=== PATIENT | male | born 1975 | race Caucasian/White ===

== ENCOUNTER 2017-12-29 20:35 | Emergency (ER) | payer BC ==
[2017-12-29] MEDS ORDERED: SULFAMETHOXAZOLE/TRIMETHOPRIM 1 EACH TABLET PO ONE (20:44)
--- NOTE | 2017-12-29 20:49 | ED Physician Documentation ---
General Adult - HISTORIAN Historian: patient - HPI Stated Complaint: spider bites Chief Complaint: General Adult Additional Information: Spider bites right axilla and leg for several days. These areas have been draining. No treatment attempted. - ROS CONST: no problems - PAST HX Past History: none Allergies/Adverse Reactions: Allergies Allergy/AdvReac Type Severity Reaction Status Date / Time No Known Allergies Allergy Verified 08/15/15 15:20 Home Medications: Ambulatory Orders Medication Instructions Recorded Gentamicin Sulfate [Gentak 0.3% 2 drop OP Q6 #15 ml 08/15/15 Opth [facility]] - SOCIAL HX Smoking History: cigarettes - FAMILY HX Family History: Yes (GF with DM, lung cancer, prostate cancer) - VITAL SIGNS Vital Signs: Vital Signs Temp Pulse Resp BP Pulse Ox 133/88 08/15/15 15:59 - REVIEWED ASSESSMENTS Nursing Assessment Reviewed: Yes Vitals Reviewed: Yes ED Results Lab/Radiology - Orders Orders: ED Orders Category Date Time Status Chem Sticks Med 12/30/17 20:44 Once 1 each MC CHEMQ ONE Sulfamethoxazole/Trimethoprim [Bactrim Ds] Med 12/29/17 20:44 Once 1 each PO NOW ONE General Adult Physical Exam - PHYSICAL EXAM GENERAL APPEARANCE: no distress EENT: eye inspection normal NECK: normal inspection, supple RESPIRATORY: no resp distress BACK: normal inspection SKIN: warm/dry, normal color, other (Right axilla with 5x8 cm area of erythema, induration and central draining area. Right post lower leg, distal 1/3with 5x6 cm area erythema, no induration, central scab>1 cm, no fluctuance) EXTREMITIES: normal range of motion (gait and stance), no evidence of injury NEURO: CN's nml as tested, motor nml, sensation nml, cognition normal Discharge Clincal Impression: Cutaneous abscess Qualifiers: Site of cutaneous abscess: extremity Site of cutaneous abscess of extremity: axilla Laterality: right Qualified Code(s): L02.411 - Cutaneous abscess of right axilla Cutaneous abscess of extremity Qualifiers: Site of cutaneous abscess of extremity: lower extremity Laterality: right Qualified Code(s): L02.415 - Cutaneous abscess of right lower limb Referrals: Primary Doctor,No [Primary Care Provider] - 2 Days Additional Instructions: Use thorough hand washing. Don't share clothes or linens. Warm compresses to the red areas several times a day. Take all the antibiotics as prescribed until they are completely gone. Condition: Good Disposition: 01 HOME, SELF-CARE Decision to Admit: NO Decision Time: 20:52
[2017-12-29 21:18] VITALS: BP 142/91
== END 2017-12-29 21:08 | disposition home or self-care (01) ==
LOC: ED 20:35
DX: L02.411 Cutaneous abscess of right axilla (principal); L02.415 Cutaneous abscess of right lower limb
CPT/HCPCS: A9270

== ENCOUNTER 2018-01-01 08:17 | Emergency (ER) | payer BC ==
--- NOTE | 2018-01-01 08:27 | ED Physician Documentation ---
General Adult - HISTORIAN Historian: patient - HPI Stated Complaint: area of skin concern abscess and possible med reaction Chief Complaint: Skin Rash Onset: days ago (3) Timing: still present, worse Severity: mild Further Comments: yes (He states he was treated with bactrim for a cellulitis abscess on the arm and notes over the last 24 hours he has had increasing red raised itching arm and back . He states he has been taking antibiotic as ordered) Last known Well Code/Unknown Code: Unknown - ROS CONST: sweating MS/SKIN/LYMPH: rash NEURO/PSYCH: denies: headache, fainting, dizziness - PAST HX Past History: none Other History: none Surgeries/Procedures: none Immunizations: UTD Allergies/Adverse Reactions: Allergies Allergy/AdvReac Type Severity Reaction Status Date / Time sulfamethoxazole Allergy Intermediate Rash Verified 01/01/18 08:37 [From Bactrim] trimethoprim [From Bactrim] Allergy Intermediate Rash Verified 01/01/18 08:37 Home Medications: Ambulatory Orders Medication Instructions Recorded NK 01/01/18 - SOCIAL HX Smoking History: cigarettes Alcohol Use: none Drug Use: none - FAMILY HX Family History: No - VITAL SIGNS Vital Signs: Vital Signs Temp Pulse Resp BP Pulse Ox 142/91 12/29/17 21:47 - REVIEWED ASSESSMENTS Nursing Assessment Reviewed: Yes Vitals Reviewed: Yes General Adult Physical Exam - PHYSICAL EXAM GENERAL APPEARANCE: no distress EENT: eye inspection normal NECK: normal inspection RESPIRATORY: no resp distress, chest non-tender, breath sounds normal CVS: reg rate & rhythm, heart sounds normal, equal pulses, no murmur ABDOMEN: soft BACK: normal inspection SKIN: warm/dry, other (red area on right axilla with extending redness over right upper arm. Crusting drainge noted. No purulent material noted under the skin . secondary red raised areas over lower back and both forearms that itch ) EXTREMITIES: non-tender, no edema NEURO: oriented X3 Discharge Clincal Impression: Allergy to antibacterial drug Cutaneous abscess of extremity Qualifiers: Site of cutaneous abscess of extremity: upper extremity Laterality: right Qualified Code(s): L02.413 - Cutaneous abscess of right upper limb Referrals: Primary Doctor,No [Primary Care Provider] - 2 Days Comments: 1. STOP bactrim 2. Benadryl OTC as directed for rash 3. Medrol Dose pack - as directed start 4. Clindamycin 300 mg take 1 by mouth four times per day x 10 days 5. rash from reaction will increase in heat 6. Follow up with PCP in 2-4 days 7. Return to ER for any concerns Condition: Stable Disposition: 01 HOME, SELF-CARE Decision to Admit: NO Date of Decison to Admit: 01/01/18 Decision Time: 08:47
[2018-01-01] MEDS ORDERED: diphenhydrAMINE HCL 25 MG TABLET PO ONE (08:38)
[2018-01-01] MEDS ORDERED: predniSONE 20 MG TABLET PO ONE (08:38)
[2018-01-01 08:57] VITALS: BP 122/78
== END 2018-01-01 08:59 | disposition home or self-care (01) ==
LOC: ED 08:17
DX: L02.413 Cutaneous abscess of right upper limb (principal); Z88.3 Allergy status to other anti-infective agents
CPT/HCPCS: Q0163